=== PATIENT | female | born 1950 | race Caucasian/White ===

== ENCOUNTER 2025-08-14 09:58 | Outpatient (REF) | payer MEDICARE, SELFPAY ==
--- NOTE | ~2025-08-14 | XR_ITS ---
EXAMINATION: XR PELVIS CLINICAL INFORMATION: M25.559 - Pain in unspecified hip COMPARISON: None available. TECHNIQUE: AP view of the pelvis. FINDINGS: Right hip arthroplasty in expected position alignment. Intact hardware. No suspicious perihardware lucencies. No evidence of acute fracture or malalignment. Left hip joint space is maintained. Minimal symphysis pubis degeneration. SI joints are intact. No suspicious bony lesions. No abnormal soft tissue calcification. XR/XR pelvis 1-2V IMPRESSION: Intact right hip arthroplasty. No findings suggest hardware loosening. No acute osseous findings.. Electronically signed by: Cole Gee MD 08/14/2025 03:42 PM EDT
== END 2025-08-14 09:59 | disposition home or self-care (01) ==
LOC: HO.HOSX 09:58
PROVIDERS: Visit Provider Orthopaedic Surgery
DX: M70.71 Other bursitis of hip, right hip (principal); Z79.890 Hormone replacement therapy
CPT/HCPCS: 72170; 99212

== ENCOUNTER 2025-08-14 13:48 | Outpatient (AMB) | payer MEDICARE, SELFPAY ==
--- NOTE | 2025-08-14 14:06 | A.OFFVIS_ITS ---
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 The patient states that her discomfort has improved since that time. She does not take any medicines for discomfort. She did undergo right total hip replacement surgery several years ago. She denies any fevers or chills. Allergies amoxicillin Allergy (Mild, Verified 08/14/25 14:12) Hives hydromorphone (From Dilaudid) Allergy (Mild, Verified 08/14/25 14:12) Hives Medication List - Last Reconciled 08/14/25 by Long Bernard MD alendronate 70 mg PO QWEEK levothyroxine 88 mcg PO DAILY mesalamine 2.4 grams PO DAILY metoprolol succinate ER 50 mg PO DAILY prednisone mg PO pregabalin 100 mg PO BID ramipril 2.5 mg PO DAILY rizatriptan mg PO rosuvastatin 10 mg PO BEDTIME sertraline 100 mg PO DAILY Physical Exam Vital Signs: BMI result Body Mass Index 34.1 Const Other: Well-nourished well-developed very friendly female awake alert and oriented x3 in no acute distress Extrem Other: Right hip examination shows that the surgical incision is well healed, no e rythema, minimal discomfort with range of motion, mild tenderness over her bursa, no overlying skin lesions Results Reviewed Results Reviewed: X-rays of the patient's right hip taken today show a total hip arthroplasty in good position with no signs of loosening, no acute bony abnormalities Assessment & Plan Assessment & Plan (1) Bursitis of hip, right: Code(s): M70.71 - Other bursitis of hip, right hip Category: Medical Plan Ms. Watkins presents with intermittent discomfort along the lateral aspect of her right hip most likely due to greater trochanteric bursitis. She does not appear to have suffered any damage to her right total hip arthroplasty after her recent fall. At this point the patient's symptoms continue to improve. We will hold off on a cortisone injection. She will continue with her home stretching program. She will contact me prior to her annual follow-up appointment should any questions or concerns arise. Feel free to call me at any time should questions regarding her orthopedic management arise. I spent 21 minutes in reviewing the patient's records and imaging studies, seeing the patient and documenting in the medical record. Orders: Orders XR pelvis 1-2V Today M25.559 - Pain in unspecified hip Coding Level of Care Code Est Pt Level 3 (48380) Complex EM visit Add On G2211 Diagnoses Bursitis of hip, right M70.71
[2025-08-14 14:10] VITALS: BMI 34.1
== END 2025-08-14 14:27 | disposition home or self-care (01) ==
LOC: HO.HOS 13:48
PROVIDERS: Visit Provider Orthopaedic Surgery
DX: M70.71 Other bursitis of hip, right hip (principal)
CPT/HCPCS: 99213; G2211

== ENCOUNTER → 2025-08-14 14:01 | Outpatient (BNV) | payer MEDICARE, SELFPAY | PROVIDERS: Visit Provider Radiology Diagnostic Ultrasound | DX: M25.551 Pain in right hip (principal); Z96.641 Presence of right artificial hip joint | CPT/HCPCS: 72170 ==